=== PATIENT | male | born 1960 | race Caucasian/White ===

== ENCOUNTER 2020-09-09 01:02 | Emergency (ER) | payer MEDICARE, OTHER ==
[~2020-09-09 01:02] MED LIST: DIVA500T4 PO; nicotine gum
--- NOTE | 2020-09-09 01:25 | NUR ---
Patient refused to be traiged. Only to be seen by ERMD. Patient was not triaged by was seen by ER MD.
--- NOTE | 2020-09-09 01:27 | NUR ---
Patient discharged to home in stable condition . Written and verbal after care instructions given. Patient verbalizes understanding of instructions. PATIENT REFUSED TO SIGN ACI
== END 2020-09-09 01:28 | disposition home or self-care (01) ==
LOC: ER 01:07
DX: Z48.89 Encounter for other specified surgical aftercare (principal); Z90.81 Acquired absence of spleen; Z82.49 Family history of ischemic heart disease and other diseases of the circulatory system
CPT/HCPCS: A4663